=== PATIENT | female | born 1950 | race Caucasian/White ===

== ENCOUNTER 2019-05-12 10:53 | Emergency (ER) | payer BC, MEDICARE ==
[2019-05-12 11:15] VITALS: BP 166/59
--- NOTE | 2019-05-12 11:17 | UC ---
Respiratory Complaint HPI - HPI Summary HPI Summary: 68 yo female presents with cough. She tells me that for the last month or so she has had "cold symptoms" consisting of sinus congestion, runny nose, and dry intermittent cough. Symptoms have been continuous. Nothing OTC for symptoms. Over the last 3-4 days has felt more short of breath and "winded" that is worse with exertion and being in the cold air. She does not smoke and denies hx of asthma. Denies fever, chills, chest pain/palpitations, abdominal pain, n/v. - History of Current Complaint Chief Complaint: UCRespiratory Stated Complaint: SHORT OF BREATH ON EXCERTION Time Seen by Provider: 05/12/19 11:16 Hx Obtained From: Patient Onset/Duration: Gradual Onset Severity Initially: Mild Severity Currently: Mild Pain Intensity: 2 Pain Scale Used: 0-10 Numeric - Allergies/Home Medications Allergies/Adverse Reactions: Allergies Allergy/AdvReac Type Severity Reaction Status Date / Time No Known Allergies Allergy Verified 05/12/19 11:14 Home Medications: Home Medications Aerds 2 Pill 1 tab PO BID 05/12/19 [History Confirmed 05/12/19] PMH/Surg Hx/FS Hx/Imm Hx Endocrine History: Diabetes, Dyslipidemia Cardiovascular History: Hypertension - Surgical History Surgical History: Yes Surgery Procedure, Year, and Place: gallbladder 1982. [facility] DISC - Family History Known Family History: Positive: None - Social History Alcohol Use: Rare Substance Use Type: None Smoking Status (MU): Former Smoker Type: Cigarettes Length of Time of Smoking/Using Tobacco: QUIT 8 YEARS AGO Have You Smoked in the Last Year: No - Immunization History Most Recent Influenza Vaccination: 02/19/15 Review of Systems All Other Systems Reviewed And Are Negative: No Constitutional: Positive: Negative Skin: Positive: Negative Eyes: Positive: Negative ENT: Positive: Sinus Congestion Respiratory: Positive: Shortness Of Breath, Cough Cardiovascular: Positive: Negative Gastrointestinal: Positive: Negative Neurological: Positive: Negative Psychological: Positive: Negative Physical Exam - Summary Physical Exam Summary: GENERAL: NAD. WDWN. No pain distress. SKIN: No rashes, sores, lesions, or open wounds. HEENT: Head: AT/NC Eyes: EOM intact. Conjunctiva clear without inflammation or discharge. Ears: Hearing grossly normal. TMs intact, no bulging, erythema, or edema. Nose: Nasal mucosa pink and moist. NTTP maxillary and frontal sinus. Throat: Posterior oropharynx without exudates, erythema, or tonsillar enlargement. Uvula midline. NECK: Supple. Nontender. No lymphadenopathy. CHEST: CTAB. Decreased breath sounds throughout. No accessory muscle use. Breathing comfortably and in no distress. CV: RRR. Pulses intact. Cap refill <2seconds NEURO: Alert. PSYCH: Age appropriate behavior. Triage Information Reviewed: Yes Vital Signs: Initial Vital Signs Temp 98.7 F 05/12/19 11:07 Pulse 87 05/12/19 11:07 Resp 18 05/12/19 11:07 BP 166/59 05/12/19 11:07 Pulse Ox 97 05/12/19 11:07 Vital Signs Reviewed: Yes Diagnostics - Radiology CXR Radiology Interpretation Completed By: Radiologist Summary of Radiographic Findings: IMPRESSION: NO ACTIVE CARDIOPULMONARY DISEASE. Respiratory Course/Dx - Course Course Of Treatment: CXR as above. In the clinic pt was given a duoneb treatment and reported feeling much better - chest was much less tight. Lung sounds improved. She was ambulated around the facility with O2% and had no episodes of desaturation (maintained O2% 95-97%) and her previously mentioned SOB with exertion did not return - reported feeling great. Suspect bronchitis. Will rx for albuterol inhaler and zpak given her DM2 and length of symptoms. - Differential Dx/Diagnosis Provider Diagnosis: Bronchitis Discharge ED - Sign-Out/Discharge Documenting (check all that apply): Patient Departure All imaging exams completed and their final reports reviewed: Yes - Discharge Plan Condition: Stable Disposition: HOME Prescriptions: Albuterol HFA INHALER* [Ventolin HFA Inhaler*] 1 - 2 puff INH Q6H PRN #1 mdi PRN Reason: Sob/Wheezing Azithromycin TAB* [Zithromax TAB (Z-LAURITA) 250 mg #6 tabs] 2 tab PO .TODAY, THEN 1 DAILY #1 laurita Patient Education Materials: Acute Bronchitis (ED) Referrals: Monica Hamm MD [Primary Care Provider] - Additional Instructions: If you develop a fever, shortness of breath continues or worsens, chest pain, new or worsening symptoms - please call your PCP or go to the ED immediately. Your blood pressure was high at todays visit. Please see your primary provider within 4 weeks for recheck and re-evaluation. - Billing Disposition and Condition Condition: STABLE Disposition: Home
[2019-05-12] MEDS ORDERED: Albuterol/Ipratropium NEB.SOL* Albuterol 2.5 MG/Ipratropium 0.5 MG 3 ML INH ONE (11:21)
== END 2019-05-12 12:00 | disposition home or self-care (01) ==
LOC: UCEAST 10:53
DX: J40 Bronchitis, not specified as acute or chronic (principal); R09.89 Other specified symptoms and signs involving the circulatory and respiratory systems; I10 Essential (primary) hypertension; E11.9 Type 2 diabetes mellitus without complications; Z87.891 Personal history of nicotine dependence
CPT/HCPCS: 71046; 99212; A9270-GY; G0463

== ENCOUNTER 2019-07-31 13:23 | Emergency (ER) | payer BC ==
[2019-07-31 14:25] VITALS: BP 166/73
--- NOTE | 2019-07-31 16:10 | UC ---
Knee Pain HPI - HPI Summary HPI Summary: PROGRESSIVELY WORSENING RIGHT KNEE PAIN OVER THE PAST 1 MONTH. HAS BECOME PROGRESSIVELY MORE DIFFICULT TO AMBULATE. PATIENT IS LIMPING. DENIES ANY ACUTE TRAUMA. 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 INDIRA HELPED YESTERDAY BUT NOT MUCH TODAY. - History of Current Complaint Chief Complaint: UCLowerExtremity Stated Complaint: RIGHT KNEE PAIN Time Seen by Provider: 07/31/19 15:35 Hx Obtained From: Patient Onset/Duration: Gradual Onset, Lasting Weeks, Still Present Severity Initially: Moderate Severity Currently: Moderate Pain Intensity: 4 Pain Scale Used: 0-10 Numeric Character: Sharp Aggravating Factor(s): Movement, Weight Bearing, Stairs Alleviating Factor(s): Rest Associated Signs And Symptoms: Negative: Numbness, Tingling Able to Bear Weight: Yes - WITH PAIN - Allergies/Home Medications Allergies/Adverse Reactions: Allergies Allergy/AdvReac Type Severity Reaction Status Date / Time No Known Allergies Allergy Verified 07/31/19 14:17 Home Medications: Home Medications Aspirin 81 mg CHEW TAB* 81 mg PO DAILY 07/31/19 [History Confirmed 07/31/19] Atorvastatin* [Lipitor 10 MG*] 10 mg PO DAILY 07/31/19 [History Confirmed ] Enalapril TAB* [Vasotec TAB*] 5 mg PO BID 07/31/19 [History Confirmed 07/31/19] Insulin Glargine,Hum.rec.anlog [Lantus 100 units/ml 10 ml VIAL (*)] 10 unit SUBCUT BID 07/31/19 [History Confirmed 07/31/19] Oxybutynin TAB* [Ditropan TAB*] 5 mg PO DAILY 07/31/19 [History Confirmed ] glipiZIDE TAB.XL* [Glucotrol Xl*] 2.5 mg PO DAILY 07/31/19 [History Confirmed ] metFORMIN* [Glucophage 1000 MG TAB *] 1,000 mg PO BID 07/31/19 [History Confirmed 07/31/19] PMH/Surg Hx/FS Hx/Imm Hx Endocrine History: Diabetes Cardiovascular History: Hypertension - Surgical History Surgical History: Yes Surgery Procedure, Year, and Place: gallbladder 1981. HERNIATED DISC - Family History Known Family History: Positive: None - Social History Alcohol Use: None Substance Use Type: None Smoking Status (MU): Former Smoker Type: Cigarettes Length of Time of Smoking/Using Tobacco: since teens Have You Smoked in the Last Year: No When Did the Patient Quit Smoking/Using Tobacco: 2009 - Immunization History Most Recent Influenza Vaccination: 02/19/15 Review of Systems All Other Systems Reviewed And Are Negative: Yes Constitutional: Positive: Negative Respiratory: Positive: Negative Cardiovascular: Positive: Negative Gastrointestinal: Positive: Negative Musculoskeletal: Positive: Arthralgia, Decreased ROM Physical Exam Triage Information Reviewed: Yes Appearance: Well-Appearing, No Pain Distress, Well-Nourished Vital Signs: Initial Vital Signs Temp 98.3 F 07/31/19 14:21 Pulse 86 07/31/19 14:21 Resp 16 07/31/19 14:21 BP 166/73 07/31/19 14:21 Pulse Ox 98 07/31/19 14:21 Vital Signs Reviewed: Yes Eyes: Positive: Conjunctiva Clear ENT: Positive: Hearing grossly normal Neck: Positive: Supple Respiratory: Positive: No respiratory distress, No accessory muscle use Cardiovascular: Positive: Pulses Normal Abdomen Description: Positive: Soft Musculoskeletal: Positive: No Edema, ROM Limited @ - RIGHT KNEE LIMITED BOTH FLEXION AND EXTENSION, Other: - RIGHT KNEE: NO JOINT LINE TENDERNESS OR TENDERNESS OVER ANY BONY PROMINENCES. PAIN MEDIALLY WITH VALGUS STRESS. NEG DRAWERS SIGNS. NEG MCMURRAYS. NO TENDERNESS OVER PATELLAR LIGAMENT OR QUADRICEPS TENDON. TENDER OVER PES ANSERINE BURSA. RIGHT KNEE MILDLY WARM TO TOUCH Neurological: Positive: Alert Psychological: Positive: Age Appropriate Behavior Skin: Negative: Rashes Diagnostics - Radiology RIGHT KNEE XRAYS Radiology Interpretation Completed By: Radiologist Summary of Radiographic Findings: 1. OSTEOPENIA. 2. OSTEOARTHRITIS. 3. NO ACUTE OSSEOUS INJURY. Knee Pain Course/Dx - Course Course Of Treatment: X-RAY SHOWS OSTEOARTHRITIS BUT NO ACUTE INJURY. PATIENTS PRESENTATION AND LOCATION OF DISCOMFORT CONSISTENT WITH PES ANSERINE PAIN. PHYSICAL THERAPY REFERRAL PROVIDED. ENCOURAGED TO CONTINUE OTC ANTI-INFLAMMATORIES FOR DISCOMFORT. PATIENT WILL WEAR A KNEE SLEEVE TO HELP WITH COMPRESSION AND SUPPORT. FOLLOW-UP WITH ORTHOPEDICS IF NOT IMPROVING OVER THE NEXT FEW WEEKS. - Differential Dx/Diagnosis Provider Diagnosis: Pes anserine bursitis Discharge ED - Sign-Out/Discharge Documenting (check all that apply): Patient Departure All imaging exams completed and their final reports reviewed: Yes - Discharge Plan Condition: Stable Disposition: HOME Patient Education Materials: Knee Bursitis (ED) Forms: *Work Release Referrals: Nelson Abdi MD [Medical Doctor] - 2 Weeks Monica Hamm MD [Primary Care Provider] - If Needed Additional Instructions: X-RAYS TODAY SHOW SOME WEAR AND TEAR IN YOUR KNEE BUT NO ACUTE INJURY. I SUSPECT PES ANSERINE PAIN. YOU MAY BENEFIT FROM PHYSICAL THERAPY. REFERRAL PROVIDED TODAY. CONTINUE OTC ANTI-INFLAMMATORIES TO HELP WITH YOUR DISCOMFORT. I RECOMMEND YOU USE A KNEE SLEEVE FOR COMPRESSION AND SUPPORT. REST, ICE, COMPRESS, ELEVATE. IF YOUR SYMPTOMS NOT IMPROVING OVER THE NEXT SEVERAL WEEKS FOLLOW-UP WITH ORTHOPEDICS FOR FURTHER EVALUATION. IBUPROFEN MAX DOSE: 600MG (3 TABS) EVERY 6 HRS OR 800MG (4 TABS) EVERY 8 HRS OR NAPROXEN MAX DOSE: 440MG (2 TABS) EVERY 12 HRS TYLENOL MAX DOSE: 1000MG (2 EXTRA STRENGTH TABS) EVERY 8 HRS OR 650MG (2 REGULAR TABS) EVERY 6 HRS - Billing Disposition and Condition Condition: STABLE Disposition: Home
== END 2019-07-31 16:25 | disposition home or self-care (01) ==
LOC: UCEAST 13:23
DX: M76.891 Other specified enthesopathies of right lower limb, excluding foot (principal); E11.9 Type 2 diabetes mellitus without complications; I10 Essential (primary) hypertension; M17.11 Unilateral primary osteoarthritis, right knee; M85.861 Other specified disorders of bone density and structure, right lower leg; Z79.82 Long term (current) use of aspirin; Z79.4 Long term (current) use of insulin; Z79.899 Other long term (current) drug therapy; Z87.891 Personal history of nicotine dependence
CPT/HCPCS: 99211; G0463